=== PATIENT | female | born 1995 | race Caucasian/White ===

== ENCOUNTER 2019-02-22 23:47 | Emergency (ER) | payer MEDICAID, OTHER ==
[2019-02-22 23:48] VITALS: BMI 25.1
[2019-02-22 23:54] VITALS: BP 112/75; PULSE 62; RESP 18; TEMP 98.2; O2SAT 100
--- NOTE | 2019-02-23 00:45 | C.PDOC ---
History Of Present Illness 23 year old female presents to the ED for evaluation of left-sided chest pain which began around two days ago. Patient states her pain as been intermittent and describes it as "a cold breeze going across her chest." Patient states her symptoms occur at random times and she is currently asymptomatic in the ED. Patient also complaints of intermittent palpitations for weeks, but denies any currently. She denies cough, recent drug use, history of smoking, or history of cardiac issues her family. Time Seen by Provider: 02/23/19 00:16 Chief Complaint (Nursing): Chest Pain History Per: Patient History/Exam Limitations: no limitations Onset/Duration Of Symptoms: Days (2), Intermittent Episodes Current Symptoms Are (Timing): Gone Quality: "Pain" Additional History Per: Patient Past Medical History Reviewed: Historical Data, Nursing Documentation, Vital Signs Vital Signs: Last Vital Signs Temp 98.2 F 02/22/19 23:50 Pulse 62 02/22/19 23:50 Resp 18 02/22/19 23:50 BP 112/75 02/22/19 23:50 Pulse Ox 100 02/22/19 23:50 - Medical History PMH: Asthma Surgical History: No Surg Hx - [facility] Procedures DELIVERY OF PRODUCTS OF CONCEPTION, EXTERNAL APPROACH (07/15/16) INJECT/INFUSE NEC (10/24/14) MONITORING OF POC, CARDIAC RATE, DIESEL TRACTOR OPERATOR APPROACH (07/15/16) REPAIR PERINEUM SKIN, EXTERNAL APPROACH (07/15/16) Family History: States: Unknown Family Hx - Social History Hx Tobacco Use: No Hx Alcohol Use: No Hx Substance Use: No Review Of Systems Constitutional: Negative for: Fever, Chills, Weakness Cardiovascular: Positive for: Chest Pain, Palpitations Respiratory: Negative for: Cough, Shortness of Breath, Sputum Gastrointestinal: Negative for: Nausea, Vomiting Musculoskeletal: Negative for: Back Pain Skin: Negative for: Rash Neurological: Negative for: Weakness, Numbness, Dizziness Physical Exam - Physical Exam Appears: Well, Non-toxic, No Acute Distress Skin: Normal Color, Warm, No Rash Head: Atraumatic, Normacephalic Eye(s): bilateral: Normal Inspection (no scleral icterus ), PERRL, EOMI Oral Mucosa: Moist Neck: Normal ROM, Supple Chest: Symmetrical, No Deformity, No Tenderness, Other (unable to elicit painful response upon palpation of chest ) Cardiovascular: Rhythm Regular, No Murmur Respiratory: No Accessory Muscle Use, Other (normal inspiratory effort) Gastrointestinal/Abdominal: Soft, No Distention Back: Other (ambulating with steady upright gait ) Extremity: Normal ROM Extremity: Bilateral: Atraumatic Pulses: Left Radial: Normal, Right Radial: Normal Neurological/Psych: Oriented x3, Normal Cranial Nerves (grossly intact ) ED Course And Treatment O2 Sat by Pulse Oximetry: 100 (on RA) Pulse Ox Interpretation: Normal Medical Decision Making Medical Decision Making: Progress: EKG ordered and reviewed. Shows normal sinus rhythm without any irregular beats. Neither patient's physical exam findings nor her past medical/family history indicate that patient's symptoms may be of cardiac etiology. Patient states she is asymptomatic at this time, and her EKG is unremarkable. Patient is resting comfortably, showing no signs of distress and is stable for discharge. She is advised to f/u with her PMD within 1-2 days for further evaluation. Advised to return to the ED immediately if symptoms return or worsen. Disposition Counseled Patient/Family Regarding: Diagnosis, Need For Followup - Disposition Referrals: at [facility] [Outside] Disposition: HOME/ ROUTINE Disposition Time: 00:44 Condition: STABLE Instructions: Chest Pain That Is Not Caused by the Heart (DC), Palpitations (DC) Forms: [facility] ([place]), General Discharge Instructions - Clinical Impression Clinical Impression: Heart palpitations, Chest wall pain - PA / MERCHANDISE HANDLER / Resident Statement MD/DO has reviewed & agrees with the documentation as recorded. - Scribe Statement The provider has reviewed the documentation as recorded by the Scribe (Eva Araiza) All medical record entries made by the Scribe were at my direction and personally dictated by me. I have reviewed the chart and agree that the record accurately reflects my personal performance of the history, physical exam, medical decision making, and the department course for this patient. I have also personally directed, reviewed, and agree with the discharge instructions and disposition.
--- NOTE | 2019-02-24 18:27 | CARD ---
APPROVED REPORT Date of service: 02/23/2019 EKG Measurement Heart [id number] <Conclusion> Normal sinus rhythm with sinus arrhythmia Normal ECG
== END 2019-02-23 00:48 | disposition home or self-care (01) ==
LOC: C.ER 23:47
DX: R07.89 Other chest pain (principal); R00.2 Palpitations